=== PATIENT | male | born 1995 | race Hispanic/Latino ===

== ENCOUNTER 2017-05-09 17:10 | Emergency (ER) | payer OTHER ==
--- NOTE | 2017-05-09 18:37 | RAD ---
THREE VIEWS RIGHT SHOULDER: History: Trauma to right shoulder while playing soccer last night. FINDINGS: AP internally and externally and scapular Y views obtained and demonstrate no evidence of right shou lder fractures, subluxations, or bony lesions. IMPRESSION: Normal three views right shoulder. POS: [facility]
== END 2017-05-09 18:14 | disposition home or self-care (01) ==
LOC: NAV ERS 17:10
DX: S40.011A Contusion of right shoulder, initial encounter (principal); F17.210 Nicotine dependence, cigarettes, uncomplicated; W50.0XXA Accidental hit or strike by another person, initial encounter; Y93.66 Activity, soccer